=== PATIENT | female | born 1975 | race Caucasian/White ===

== ENCOUNTER 2016-09-10 12:20 | Emergency (ER) | payer MEDICARE, MEDICAID ==
[2016-09-10] MEDS ORDERED: OPTIRAY 350 100 ML VIAL HMH IV ONE (12:21)
[2016-09-10] MEDS ORDERED: ONDANSETRON 4 MG VIAL ONE (13:23)
[2016-09-10] MEDS ORDERED: DICYCLOMINE 20MG/2ML VIAL IM ONE (13:23)
[2016-09-10] MEDS ORDERED: SODIUM CHLORIDE 0.9% 1,000 ML ONE (13:23)
[2016-09-10] MEDS ORDERED: PROMETHAZINE 25 MG/ML VIAL ONE (17:16)
== END 2016-09-10 17:44 | disposition home or self-care (01) ==
LOC: ER 12:20
DX: K52.9 Noninfective gastroenteritis and colitis, unspecified (principal)
CPT/HCPCS: 36415; 70450; 74022; 74177; 80053; 81003; 82274; 83690; 84484; 84703; 85025; 87045; 87046; 87493; 87880; 93005; 96361; 96372; 96374; 96375; 99285; J0500; J2405; J2550; Q9967